=== PATIENT | female | born 1940 | race Caucasian/White ===

== ENCOUNTER 2018-11-22 10:57 | Inpatient (IN) | payer MEDICARE, OTHER, BC ==
[2018-11-22 11:32] LABS: ADD MAN DIFF? NO
[2018-11-22 11:39] LABS: WHITE BLOOD COUNT 5.2 10^3/ul (4.8-10.8)
[2018-11-22 11:39] LABS: BASOPHILS % 0.4 % (0.0-2.0); EOSINOPHILS # 0.1 10^3/ul (0.0-0.5); EOSINOPHILS % 1.1 % (0.0-7.0); HEMATOCRIT 39.4 % (37.0-47.0); HEMOGLOBIN 13.1 g/dl (12.0-16.0); LYMPHOCYTES # 0.8 10^3/ul (0.8-2.9); LYMPHOCYTES % 14.5 % (15.0-51.0); MEAN CORPUSCULAR HGB CONC 33.2 g/dl (32.0-37.0); MEAN CORPUSCULAR VOLUME 93.1 fl (82.0-101.0); MEAN PLATELET VOLUME 11.2 fl (7.4-10.4); MONOCYTE # 0.5 10^3/ul (0.3-0.9); MONOCYTES % 8.8 % (0.0-11.0); NEUTROPHIL # 3.9 10^3/ul (1.6-7.5); PLATELET COUNT 157 10^3/UL (140-415); RED BLOOD COUNT 4.23 10^6/ul (4.20-5.40); RED CELL DISTRIBUTION WIDTH 12.7 % (11.5-14.5)
[2018-11-22 11:56] LABS: ALANINE AMINOTRANSFERASE 29 IU/L (13-69); ALBUMIN/GLOBULIN RATIO 1.38; ALKALINE PHOSPHATASE 93 IU/L (42-121); ANION GAP 9 (5-13); ASPARTATE AMINO TRANSFERASE 39 IU/L (15-46); BLOOD UREA NITROGEN 12 mg/dl (7-20); CALCIUM 10.1 mg/dl (8.4-10.2); CARBON DIOXIDE 29 mmol/L (21-31); CHLORIDE 105 mmol/L (97-110); CREATININE 0.78 mg/dl (0.44-1.00); GLUCOSE 130 mg/dl (70-220); LIPASE 64 U/L (23-300); POTASSIUM 3.8 mmol/L (3.5-5.1); SODIUM 143 mmol/L (135-144); TOTAL PROTEIN 8.6 g/dl (6.1-8.1)
[2018-11-22 12:00] LABS: INR 1.13; PROTIME 14.6 Sec (11.9-14.9); PT RATIO 1.1
[2018-11-22 12:07] LABS: TROPONIN-I 0.015 ng/ml (0.000-0.120)
[2018-11-22] MEDS: ONDANSETRON 4 MG INJ IV (12:24)
[2018-11-22 14:26] LABS: ADD UMIC NO; UR ASCORBIC ACID NEGATIVE (NEGATIVE); UR BILIRUBIN (Dip) NEGATIVE (NEGATIVE); UR BLOOD (Dip) NEGATIVE (NEGATIVE); UR CLARITY CLEAR (CLEAR); UR COLOR YELLOW (YELLOW); UR GLUCOSE (Dip) NEGATIVE (NEGATIVE); UR KETONES (Dip) NEGATIVE (NEGATIVE); UR LEUKOCYTE ESTERASE (Dip) NEGATIVE Leu/ul (NEGATIVE); UR NITRITE (Dip) NEGATIVE (NEGATIVE); UR SPECIFIC GRAVITY (Dip) 1.003 (1.003-1.030); UR TOTAL PROTEIN (Dip) NEGATIVE (NEGATIVE); UR UROBILINOGEN (Dip) NEGATIVE (NEGATIVE)
[2018-11-22] MEDS: SOD CHLORIDE 0.9% 100 ML (15:02)
[2018-11-22] MEDS: IOHEXOL 100 ML (15:02)
[2018-11-22] MEDS: AMLODIPINE 5 MG TAB PO (22:43)
[2018-11-22] MEDS: CLONIDINE 0.1 MG/24 HR PATCH TRANSDERM (22:44)
[2018-11-23] MEDS: LABETALOL HCL 20MG INJ IV (00:38)
[2018-11-23] MEDS ORDERED: MECLIZINE 25 MG TAB PO (01:00)
[2018-11-23] MEDS ORDERED: traMADol-APAP 37.5-325 1 TAB PO (01:00)
[2018-11-23] MEDS ORDERED: ONDANSETRON 4 MG TAB PO (01:00)
[2018-11-23] MEDS: ALBUTEROL HFA 8 GM INHALER INH ×6 (01:00→21:00)
[2018-11-23] MEDS: ENOXAPARIN 40 MG/0.4 ML SYG SC (01:52)
[2018-11-23 02:21] LABS: IRON 84 ug/dl (35-150)
[2018-11-23 02:23] LABS: MAGNESIUM 2.1 mg/dl (1.7-2.5)
[2018-11-23 02:30] LABS: % IRON SATURATION 26 % SAT (22-52); TOTAL IRON BINDING CAPACITY 322 ug/dl (241-421)
[2018-11-23 05:35] LABS: ADD MAN DIFF? NO
[2018-11-23 05:43] LABS: BASOPHILS % 0.3 % (0.0-2.0); EOSINOPHILS # 0.1 10^3/ul (0.0-0.5); EOSINOPHILS % 1.4 % (0.0-7.0); HEMATOCRIT 37.6 % (37.0-47.0); HEMOGLOBIN 12.3 g/dl (12.0-16.0); LYMPHOCYTES # 1.4 10^3/ul (0.8-2.9); LYMPHOCYTES % 23.3 % (15.0-51.0); MEAN CORPUSCULAR HEMOGLOBIN 30.1 pg (29.0-33.0); MEAN CORPUSCULAR HGB CONC 32.7 g/dl (32.0-37.0); MEAN CORPUSCULAR VOLUME 92.2 fl (82.0-101.0); MEAN PLATELET VOLUME 11.3 fl (7.4-10.4); MONOCYTE # 0.7 10^3/ul (0.3-0.9); MONOCYTES % 11.2 % (0.0-11.0); NEUTROPHIL # 3.7 10^3/ul (1.6-7.5); NEUTROPHILS % 63.5 % (39.0-77.0); PLATELET COUNT 160 10^3/UL (140-415); RED BLOOD COUNT 4.08 10^6/ul (4.20-5.40); RED CELL DISTRIBUTION WIDTH 12.8 % (11.5-14.5)
[2018-11-23 05:43] LABS: WHITE BLOOD COUNT 5.8 10^3/ul (4.8-10.8)
[2018-11-23 06:03] LABS: INR 1.22; PROTIME 15.5 Sec (11.9-14.9); PT RATIO 1.2
[2018-11-23 06:07] LABS: B-TYPE NATRIURETIC PEPTIDE 1500 PG/ML (0-450)
[2018-11-23] MEDS: PANTOPRAZOLE (EC) 40 MG TAB PO (07:24)
[2018-11-23] MEDS: LOSARTAN 50 MG TAB PO ×2 (08:07→20:12)
[2018-11-23] MEDS: SOLIFENACIN 5 MG TAB PO (08:08)
[2018-11-23] MEDS: FUROSEMIDE 40 MG TAB PO (08:08)
[2018-11-23] MEDS: POTASSIUM CHLORIDE (SR) 8 MEQ CAP PO (08:08)
[2018-11-23] MEDS: AMLODIPINE 5 MG TAB PO ×2 (08:09→20:12)
[2018-11-23] MEDS: FLUTICASONE 0.05% 16 GM NAS SPRAY NASAL (08:17)
[2018-11-23] MEDS ORDERED: NON-FORMULARY/PATIENT OWN MED (Esomeprazole Mag Trihydrate (Nexium) 40 MG) PO (09:00)
[2018-11-23] MEDS: ACETAMINOPHEN 325 MG TAB PO ×2 (11:53→20:13)
[2018-11-23] MEDS ORDERED: hydrALAzine 20 MG INJ IV (19:30)
[2018-11-23] MEDS: ATORVASTATIN 20 MG TAB PO (20:12)
[2018-11-23] MEDS: EZETIMIBE 10 MG TAB PO (20:13)
[2018-11-23] MEDS: ALPRAZOLAM 0.5 MG TAB PO (20:14)
[2018-11-23] MEDS ORDERED: RANITIDINE 150 MG TAB PO (21:00)
[2018-11-24] MEDS: ALBUTEROL HFA 8 GM INHALER INH ×6 (01:00→20:37)
[2018-11-24] MEDS: PANTOPRAZOLE (EC) 40 MG TAB PO (05:30)
[2018-11-24] MEDS: SOLIFENACIN 5 MG TAB PO (08:25)
[2018-11-24] MEDS: FLUTICASONE 0.05% 16 GM NAS SPRAY NASAL (08:25)
[2018-11-24] MEDS: LOSARTAN 50 MG TAB PO ×2 (08:26→20:37)
[2018-11-24] MEDS: AMLODIPINE 5 MG TAB PO ×2 (08:26→20:36)
[2018-11-24] MEDS: FUROSEMIDE 40 MG TAB PO (08:26)
[2018-11-24] MEDS: POTASSIUM CHLORIDE (SR) 8 MEQ CAP PO (08:27)
[2018-11-24] MEDS: CLOPIDOGREL 75 MG TAB PO (16:15)
[2018-11-24] MEDS: ENOXAPARIN 30 MG/0.3 ML SYG SC (16:24)
[2018-11-24] MEDS: ACETAMINOPHEN 325 MG TAB PO (20:36)
[2018-11-24] MEDS: EZETIMIBE 10 MG TAB PO (20:36)
[2018-11-24] MEDS: ATORVASTATIN 20 MG TAB PO (20:36)
[2018-11-25] MEDS: ALBUTEROL HFA 8 GM INHALER INH ×6 (01:00→20:25)
[2018-11-25] MEDS: PANTOPRAZOLE (EC) 40 MG TAB PO (06:16)
[2018-11-25] MEDS: ENOXAPARIN 30 MG/0.3 ML SYG SC (08:26)
[2018-11-25] MEDS: FLUTICASONE 0.05% 16 GM NAS SPRAY NASAL (08:26)
[2018-11-25] MEDS: SOLIFENACIN 5 MG TAB PO (08:27)
[2018-11-25] MEDS: POTASSIUM CHLORIDE (SR) 8 MEQ CAP PO (08:28)
[2018-11-25] MEDS: LOSARTAN 50 MG TAB PO ×2 (08:28→20:23)
[2018-11-25] MEDS: FUROSEMIDE 40 MG TAB PO (08:28)
[2018-11-25] MEDS: AMLODIPINE 5 MG TAB PO ×2 (08:28→20:23)
[2018-11-25] MEDS: CLOPIDOGREL 75 MG TAB PO (08:28)
[2018-11-25] MEDS: EZETIMIBE 10 MG TAB PO (20:22)
[2018-11-25] MEDS: ATORVASTATIN 20 MG TAB PO (20:23)
[2018-11-26] MEDS: ALBUTEROL HFA 8 GM INHALER INH ×5 (01:00→16:08)
[2018-11-26] MEDS: PANTOPRAZOLE (EC) 40 MG TAB PO (05:12)
[2018-11-26] MEDS: FLUTICASONE 0.05% 16 GM NAS SPRAY NASAL (08:37)
[2018-11-26] MEDS: POTASSIUM CHLORIDE (SR) 8 MEQ CAP PO (08:38)
[2018-11-26] MEDS: SOLIFENACIN 5 MG TAB PO (08:38)
[2018-11-26] MEDS: CLOPIDOGREL 75 MG TAB PO (08:38)
[2018-11-26] MEDS: LOSARTAN 50 MG TAB PO (08:43)
[2018-11-26] MEDS: FUROSEMIDE 40 MG TAB PO (08:44)
[2018-11-26] MEDS: AMLODIPINE 5 MG TAB PO (08:44)
== END 2018-11-26 17:30 | disposition home health service (06) | DRG 69 ==
LOC: E/R 10:57 → 6WM 14:45
DX: G45.9 Transient cerebral ischemic attack, unspecified (principal); I48.91 Unspecified atrial fibrillation; Z79.01 Long term (current) use of anticoagulants; E78.5 Hyperlipidemia, unspecified; I10 Essential (primary) hypertension; Z95.0 Presence of cardiac pacemaker; Z95.2 Presence of prosthetic heart valve
CPT/HCPCS: 36415; 70450; 70496; 70498; 71045; 74176; 80053; 81003; 83540; 83690; 83735; 83880; 84443; 84484; 85025; 85610; 87040; 93005; 93306; 93970; 95819; 96374; 97116; 97161; 97530; 99285-25; G0378

== ENCOUNTER 2019-01-08 05:45 | Day surgery (SDC) | payer MEDICARE, OTHER ==
[2019-01-08] MEDS ORDERED: SOD CHLORIDE 0.45% 1,000 ML IV (06:00)
[2019-01-08] MEDS ORDERED: CEFAZOLIN 1 GM/50 ML (PMX) 50 ML IVPB ×2 (06:00→18:00)
[2019-01-08] MEDS ORDERED: DIAZEPAM 5 MG TAB PO (06:00)
[2019-01-08 06:52] LABS: PT RATIO 1.1
[2019-01-08] MEDS ORDERED: PROPOFOL 20 ML (07:00)
[2019-01-08] MEDS ORDERED: CEFAZOLIN 1 GM INJ (07:00)
[2019-01-08] MEDS ORDERED: LIDOCAINE 2% (SDV) 5 ML INJ (07:00)
[2019-01-08] MEDS ORDERED: FENTAnyl 50 MCG/ML VIAL (07:00)
[2019-01-08 07:03] LABS: ALANINE AMINOTRANSFERASE 19 IU/L (13-69); ALBUMIN 4.6 g/dl (3.3-4.9); ALBUMIN/GLOBULIN RATIO 1.48; ALKALINE PHOSPHATASE 70 IU/L (42-121); ANION GAP 14 (5-13); ASPARTATE AMINO TRANSFERASE 38 IU/L (15-46); BILIRUBIN,INDIRECT 0.6 mg/dl (0-1.1); BILIRUBIN,TOTAL 0.6 mg/dl (0.2-1.3); BLOOD UREA NITROGEN 16 mg/dl (7-20); CALCIUM 9.7 mg/dl (8.4-10.2); CARBON DIOXIDE 27 mmol/L (21-31); CHLORIDE 102 mmol/L (97-110); CHOL/HDL RATIO 2.2 RATIO; CHOLESTEROL 128 mg/dl (100-200); CREATININE 0.75 mg/dl (0.44-1.00); GLUCOSE 89 mg/dl (70-220); HDL CHOLESTEROL 57 mg/dl (33-92); LDL CHOLESTEROL,CALCULATED 41 mg/dl; POTASSIUM 4.8 mmol/L (3.5-5.1); SODIUM 143 mmol/L (135-144); TOTAL PROTEIN 7.7 g/dl (6.1-8.1); TRIGLYCERIDES 152 mg/dl (0-149)
[2019-01-08 07:08] LABS: HEMATOCRIT 33.7 % (37.0-47.0); HEMOGLOBIN 10.7 g/dl (12.0-16.0); MEAN CORPUSCULAR HEMOGLOBIN 30.2 pg (29.0-33.0); MEAN CORPUSCULAR HGB CONC 31.8 g/dl (32.0-37.0); MEAN CORPUSCULAR VOLUME 95.2 fl (82.0-101.0); PLATELET COUNT 122 10^3/UL (140-415); RED BLOOD COUNT 3.54 10^6/ul (4.20-5.40); RED CELL DISTRIBUTION WIDTH 12.3 % (11.5-14.5)
[2019-01-08 07:24] LABS: HOLD TRANSMISSIONS 1
[2019-01-08 07:29] LABS: ADD MAN DIFF? YES
[2019-01-08] MEDS ORDERED: ACETAMINOPHEN 1000MG/100ML IV 100 ML IVPB (07:30)
[2019-01-08] MEDS ORDERED: FENTAnyl 50 MCG/ML VIAL IV ×2 (07:30)
[2019-01-08] MEDS ORDERED: ONDANSETRON 4 MG INJ IV (07:30)
[2019-01-08] MEDS: POLYMYXIN/BACITRACIN 1L IRRIG (07:36)
[2019-01-08 07:57] LABS: INR 1.03; PARTIAL THROMBOPLASTIN TIME 29.8 Sec (23.0-35.0); PROTIME 13.7 Sec (11.9-14.9)
[2019-01-08] MEDS ORDERED: hydrALAzine 20 MG INJ (08:17)
[2019-01-08] MEDS: LIDOCAINE 0.5% (MDV) 50 ML INJ (08:20)
[2019-01-08] MEDS: FENTAnyl 50 MCG/ML VIAL IV ×2 (08:59→09:14)
[2019-01-08] MEDS ORDERED: morphine 2 MG INJ IV (09:00)
[2019-01-08] MEDS ORDERED: OXYCODONE/ACETAMINOPHEN (5/325) TAB PO (09:30)
[2019-01-08 10:44] LABS: ANISOCYTOSIS 1+ (0-0); BAND NEUTROPHILS #M 0.1 10^3/ul (0.0-0.6); BAND NEUTROPHILS % (M) 4 % (0-4); BASOPHILS % (M) 1 % (0-2); EOSINOPHILS % (M) 1 % (0-7); GIANT THROMBO% (M) 1 % (0-0); LYMPHOCYTES #M 0.6 10^3/ul (0.8-2.9); LYMPHOCYTES % (M) 16 % (15-51); MONOCYTE #M 0.2 10^3/ul (0.3-0.9); MONOCYTES % (M) 7 % (0-11); PLATELET ESTIMATE DECREASED; REACTIVE LYMPHOCYTES #M 0.1 10^3/ul (0.0-0.0); REACTIVE LYMPHOCYTES% (M) 3 % (0-0); SEG NEUT #M 2.7 10^3/ul (1.6-7.5); SEGMENTED NEUTROPHILS (M) % 68 % (39-77); SMUDGE%M 25 % (0-0)
[2019-01-08] MEDS: OXYCODONE/ACETAMINOPHEN (5/325) TAB PO (11:17)
[2019-01-08] MEDS: CEFAZOLIN 1 GM/50 ML (PMX) 50 ML IVPB (11:47)
[2019-01-08] MEDS ORDERED: CEFAZOLIN 1 GM INJ INJ (12:00)
== END 2019-01-08 13:06 | disposition home or self-care (01) ==
LOC: SDS 05:45
DX: Z45.02 Encounter for adjustment and management of automatic implantable cardiac defibrillator (principal); I11.0 Hypertensive heart disease with heart failure; I50.9 Heart failure, unspecified; I25.10 Atherosclerotic heart disease of native coronary artery without angina pectoris; I48.91 Unspecified atrial fibrillation; E78.5 Hyperlipidemia, unspecified; I25.2 Old myocardial infarction
CPT/HCPCS: 33262; 71045; 80053; 80061; 85025; 85610; 85730; 88300; 93005